=== PATIENT | male | born 1935 | race African-American/Black ===

== ENCOUNTER 2019-05-14 18:20 | Emergency (ER) | payer MEDICARE ==
[~2019-05-14] VITALS: Ht 180.3 cm; Wt 83.5 kg
[2019-05-14 18:20] VITALS: BP_SYST 135
--- NOTE | 2019-05-14 18:20 | NUR ---
BROUGHT BACK TO BED #8 AND TRIAGED, REPORT GIVEN TO DARLIN
[2019-05-14] MEDS ORDERED: METO25CA PO (18:40)
[2019-05-14] MEDS ORDERED: AMLO5TAB4 PO (18:40)
--- NOTE | 2019-05-14 18:42 | NUR ---
PATIENT PRESENTS TO THE ER WITH HX OF ELEVATED HEART RATE TODAY WHEN HE CHECKED HIS BLOOD PRESSURE (132); PATIENT HAD BEEN WORKING IN THE YARD AND FORGOT TO TAKE HIS MEDICATIONS; PATIENT THEN TOOK HIS MEDS AND CAME TO ER FOR EVALUATION; NO TRAUMA, NO OTHER REMARKABLE S/S; PATIENT STATES HIS SYMPTOMS ARE RESOLVED CURRENTLY
--- NOTE | 2019-05-14 20:20 | NUR ---
ER Dr. Flood at bedside examining patient.
[2019-05-14 21:05] LABS: BASOPHILS % (AUTO) 0.8 % (0.0-2.0); EOSINOPHILS # (AUTO) 0.2 K/uL (0.0-0.4); HEMATOCRIT 40.4 % (36-54); HEMOGLOBIN 13.3 g/dL (14.0-18.0); LYMPHOCYTES # (AUTO) 1.6 K/uL (1.0-5.5); LYMPHOCYTES % (AUTO) 39.7 % (20.5-51.5); MEAN CORPUSCULAR HEMOGLOBIN 28 pg (27-31); MEAN CORPUSCULAR HGB CONC 33 % (32-36); MEAN CORPUSCULAR VOLUME 85 fL (79.0-98.0); MONOCYTES # (AUTO) 0.3 K/uL (0.0-1.0); MONOCYTES % (AUTO) 7.4 % (1.7-9.3); NEUTROPHILS # (AUTO) 1.9 K/uL (1.8-7.7); NEUTROPHILS % (AUTO) 48.1 % (40.0-70.0); PLATELET COUNT (AUTO) 191 K/uL (130-430); RED BLOOD CELL COUNT(AUTO) 4.75 MIL/uL (4.2-6.2); RED CELL DISTRIBUTION WIDTH 15.2 % (9.0-15.0)
[2019-05-14 21:07] LABS: ANION GAP 8 (5-15); CALCIUM 9.3 mg/dL (8.4-11.0); CHLORIDE 104 mmol/L (98-107); CREATININE 1.13 mg/dL (0.55-1.30); GLUCOSE 96 mg/dL (70-99); POTASSIUM 4.9 mmol/L (3.5-5.1); SODIUM SERUM 142 mmol/L (136-145); UREA NITROGEN, BLOOD 24 mg/dL (8-21)
[2019-05-14 21:13] LABS: ALANINE AMINOTRANSFERASE 21 U/L (12-78); ALBUMIN 3.6 g/dL (3.4-4.8); ASPARTATE AMINOTRANSFERASE 18 U/L (10-37); TOTAL BILIRUBIN 0.4 mg/dL (0.0-1.0)
[2019-05-14 22:49] VITALS: BP_SYST 120
--- NOTE | 2019-05-14 22:49 | NUR ---
Patient given written and verbal discharge instructions and verbalizes understanding. ER MD discussed with patient the results and treatment provided. Patient in stable condition. ID arm band removed. No Rx given. Patient educated on pain management and to follow up with PMD. Pain Scale 0/10 . Opportunity for questions provided and answered. Medication side effect fact sheet provided.
== END 2019-05-14 22:49 | disposition home or self-care (01) ==
LOC: SED 18:20
DX: R00.0 Tachycardia, unspecified (principal); I10 Essential (primary) hypertension; Z88.1 Allergy status to other antibiotic agents; Z88.8 Allergy status to other drugs, medicaments and biological substances
CPT/HCPCS: 36415; 71045; 80053; 83880; 84484; 85025; 99284